=== PATIENT | female | born 1975 | race Caucasian/White ===

== ENCOUNTER → 2018-03-05 13:21 | Outpatient (CLI) | payer OTHER, SELFPAY ==
[2018-03-05 16:00] LABS: Absolute Lymphocyte Count 1.49 X10^3/ul (0.83-4.51); Absolute Neutrophil Count 8.8 X10^3/uL (2.0-7.7); Basophil# 0.02 X10^3/uL; Basophil% 0.2 % (0-1); Eosinophil# 0.07 X10^3/uL; Eosinophils% 0.7 % (0-5); Hematocrit 37.7 % (37-47); Hemoglobin 12.3 g/dl (12.0-15.0); Lymphocyte # 1.49 X10^3/ul (4.0); Lymphocyte % 13.9 % (19-41); Mean Corp Hgb Conc 32.6 g/gl (32-36); Mean Corpuscular Hgb 29.4 pg (27.0-32.0); Mean Corpuscular Volume 90.2 fL (81-99); Mean Platelet Vol. 9.4 fl (6.2-12.0); Monocyte% 2.8 % (0-10); Neutrophil # 8.84 X10^3/uL (2.7-7.7); Neutrophil % 82.3 % (47-70); Platelet Count 385 K/mm3 (150-450); RBC Distribution Width CV 14.1 % (11.6-14.6); RBC Distribution Width SD 45.5 fl (35.1-43.9); Red Blood Count 4.18 M/mm3 (4.2-5.4); White Blood Count 10.7 K/mm3 (4.4-11.0)
[2018-03-05 16:02] LABS: POSITIVE COUNT NO; POSITIVE DIFFERENTIAL NO; POSITIVE MORPHOLOGY NO
[2018-03-05 16:10] LABS: Hemoglobin A1c 6.5 % (4.2-6.3)
[2018-03-05 16:13] LABS: ALB/GLOB Ratio 0.8 RATIO (0.9-2.4); AST(SGOT) 16 U/L (15-37); Alanine Aminotransfer ALT/SGPT 22 U/L (13-56); Albumin, Serum 3.1 g/dL (3.2-5.0); Alkaline Phosphatase 94 U/L (45-117); Anion Gap 11 (5-15); BUN 6 mg/dL (7-18); BUN/Creat Ratio 7.3 RATIO (10-20); Calcium,Total 8.8 mg/dL (8.5-10.1); Chloride 105 mmol/L (98-107); Cholesterol 127 mg/dL (200); Creatinine, Serum 0.82 mg/dL (0.55-1.02); EST Glomerular Filtration Rate 81 mL/min (>60); Est Glom Filt Rate - Afr Amer 98 mL/min (>60); Globulin 4.1 g/dL (2.2-4.2); Glucose 117 mg/dL (74-106); High Density Lipoprotein 45 mg/dL; Potassium 3.6 mmol/L (3.5-5.1); Protein, Total 7.2 g/dL (6.4-8.2); Sodium Level 142 mmol/L (136-145); T4 Free Direct 1.33 ng/dL (0.76-1.46); Thyroid Stim Hormone (TSH) 0.51 uIU/mL (0.358-3.74); Triglycerides 54 mg/dL; Very Low Density Lipoprotein 11 mg/dL (5-40)
[2018-03-05 16:21] LABS: Vitamin D,25 Hydroxy 33.3 ng/mL (29.95-100.01)
== END ==
PROVIDERS: Family Provider Family Medicine; PCP Family Medicine; Visit Provider Nurse Practitioner
DX: I10 Essential (primary) hypertension (principal); E03.9 Hypothyroidism, unspecified; E10.9 Type 1 diabetes mellitus without complications
CPT/HCPCS: 80053; 80061; 82306; 83036; 84439; 84443; 85025

== ENCOUNTER → 2019-04-22 13:54 | Outpatient (CLI) | payer OTHER, SELFPAY ==
[2019-04-22 15:43] LABS: Absolute Lymphocyte Count 2.15 X10^3/uL (0.83-4.51); Absolute Neutrophil Count 5.4 X10^3/uL (2.0-7.7); Basophil# 0.04 X10^3/uL; Basophil% 0.5 % (0-1); Eosinophil# 0.07 X10^3/uL; Eosinophils% 0.9 % (0-5); Hematocrit 38.7 % (37-47); Hemoglobin 12.3 g/dL (12.0-15.0); Lymphocyte # 2.15 X10^3/ul (4.0); Lymphocyte % 26.8 % (19-41); Mean Corp Hgb Conc 31.8 g/dL (32-36); Mean Corpuscular Hgb 28.9 pg (27.0-32.0); Mean Corpuscular Volume 91.1 fL (81-99); Mean Platelet Vol. 9.3 fl (6.2-12.0); Monocyte# 0.34 X10^3/uL; Monocyte% 4.2 % (0-10); NRBC Flagged by Analyzer 0 % (0-5); Neutrophil # 5.38 X10^3/uL (2.7-7.7); Neutrophil % 67.2 % (47-70); Platelet Count 345 K/mm3 (150-450); RBC Distribution Width CV 15.4 % (11.6-14.6); RBC Distribution Width SD 50.7 fl (35.1-43.9); Red Blood Count 4.25 M/mm3 (4.2-5.4)
[2019-04-22 15:58] LABS: Hemoglobin A1c 7.2 % (4.2-6.3)
[2019-04-22 16:35] LABS: ALB/GLOB Ratio 0.7 RATIO (0.9-2.4); AST(SGOT) 13 U/L (15-37); Alanine Aminotransfer ALT/SGPT 21 U/L (13-56); Albumin, Serum 3.2 g/dL (3.2-5.0); Alkaline Phosphatase 109 U/L (45-117); Anion Gap 9 (5-15); BUN 7 mg/dL (7-18); BUN/Creat Ratio 10.2 RATIO (10-20); Calcium,Total 9.2 mg/dL (8.5-10.1); Chloride 102 mmol/L (98-107); Creatinine, Serum 0.68 mg/dL (0.55-1.02); EST Glomerular Filtration Rate 99 mL/min (>60); Est Glom Filt Rate - Afr Amer 120 mL/min (>60); Globulin 4.5 g/dL (2.2-4.2); Glucose 99 mg/dL (74-106); Potassium 3.3 mmol/L (3.5-5.1); Protein, Total 7.7 g/dL (6.4-8.2); Sodium Level 139 mmol/L (136-145); T4 Free Direct 1.42 ng/dL (0.76-1.46); Thyroid Stim Hormone (TSH) 0.26 uIU/mL (0.358-3.74)
== END ==
PROVIDERS: Family Provider Family Medicine; PCP Family Medicine; Visit Provider Family Medicine
DX: E03.9 Hypothyroidism, unspecified (principal); I10 Essential (primary) hypertension; E10.9 Type 1 diabetes mellitus without complications
CPT/HCPCS: 36415; 80053; 83036; 84439; 84443; 85025

== ENCOUNTER → 2020-01-22 14:54 | Outpatient (CLI) | payer OTHER, SELFPAY | PROVIDERS: Family Provider Family Medicine; PCP Family Medicine; Visit Provider Family Medicine | DX: R30.0 Dysuria (principal) | CPT/HCPCS: 87086 ==

== ENCOUNTER → 2020-03-25 | Outpatient (CLI) | payer OTHER, SELFPAY ==
[2020-03-15 12:23] VITALS: BMI 48.4
== END | disposition home or self-care (01) ==
LOC: LABSPEC 10:15
PROVIDERS: PCP Family Medicine; Visit Provider Family Medicine
DX: R30.0 Dysuria (principal)
CPT/HCPCS: 87086; 87088

== ENCOUNTER → 2020-05-11 13:17 | Outpatient (CLI) | payer OTHER, SELFPAY ==
[2020-05-11 10:44] VITALS: BMI 46.6
[2020-05-11 14:55] LABS: Bacteria 0 SEEN /hpf (None Seen); Mucous, Urine 0 SEEN /hpf (<or=2+)
[2020-05-11 15:17] LABS: Color, Urine Yellow (Yellow); Glucose, Dipstick Normal (Normal); Ketone-Dipstick Negative (Negative); Leukocyte Esterase-Dipstick 25 /ul (Negative); Nitrite-Dipstick Negative (Negative); Occult Blood-Urine 250 /ul (Negative); Protein-Dipstick 30 mg/dl (Negative); Specific Gravity, Urine 1.005 (1.002-1.030); Urine Bilirubin Dipstick Negative (Negative); Urine Clarity Sl. Cloudy (Clear); Urine Urobilinogen Normal (Normal); Urine pH 6.5 (5.0 - 8.0)
[2020-05-11 15:24] LABS: Red Blood Cells-Urine 25-50 SEEN /hpf (0-5); Squamous Epithelial Cells - UA 0-5 SEEN /hpf (5-10); White Blood Cells 0-5 SEEN /hpf (0-5)
== END ==
PROVIDERS: PCP Family Medicine; Referring Provider Physician Assistant Surgical; Visit Provider Physician Assistant Surgical
DX: R31.9 Hematuria, unspecified (principal)
CPT/HCPCS: 81001; 87086; 87088; 87635; U0003

== ENCOUNTER 2020-12-12 11:15 | Emergency (ER) | payer OTHER, SELFPAY ==
[2020-11-07 09:22] VITALS: BMI 46.6
[2020-12-12 11:16] VITALS: BP 161/101; PULSE 92; RESP 18; TEMP 36; O2SAT 97; BMI 49.6
--- NOTE | 2020-12-12 11:32 | RAD_ITS ---
STUDY: X-RAY - CERVICAL SPINE REASON FOR EXAM: Female, 45 years old. injury TECHNIQUE: view(s) of the cervical spine were obtained. COMPARISON: None FINDINGS: There is straightening of the cervical lordosis otherwise the vertebral bodies are normal height. Intervertebral disc spaces are maintained the prevertebral soft tissue is unremarkable. The air column is patent. RAD/Cerv Spine 2 or 3 Views IMPRESSION: Straightening of the cervical spine the study is otherwise negative Electronically Signed: Lilly Hunt, at 12:45 EDT Tel , Service support ,
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
[2020-12-12 12:59] VITALS: RESP 16
== END 2020-12-12 13:00 | disposition home or self-care (01) ==
PROVIDERS: Emergency Provider Emergency Medicine; PCP Family Medicine
DX: S16.1XXA Strain of muscle, fascia and tendon at neck level, initial encounter (principal); V89.2XXA Person injured in unspecified motor-vehicle accident, traffic, initial encounter; Y92.410 Unspecified street and highway as the place of occurrence of the external cause; I10 Essential (primary) hypertension; E03.9 Hypothyroidism, unspecified; K21.9 Gastro-esophageal reflux disease without esophagitis; G62.9 Polyneuropathy, unspecified; Z87.891 Personal history of nicotine dependence; F32.9 Major depressive disorder, single episode, unspecified; F41.9 Anxiety disorder, unspecified; J44.9 Chronic obstructive pulmonary disease, unspecified; Z79.4 Long term (current) use of insulin
CPT/HCPCS: 72040; 99282

== ENCOUNTER → 2021-03-20 15:43 | Outpatient (CLI) | payer OTHER, SELFPAY ==
[2021-03-20 17:37] LABS: Absolute Lymphocyte Count 1.95 X10^3/uL (0.83-4.51); Absolute Neutrophil Count 7.8 X10^3/uL (2.0-7.7); Basophil# 0.03 X10^3/uL; Basophil% 0.3 % (0-1); Eosinophil# 0.14 X10^3/uL; Eosinophils% 1.4 % (0-5); Hematocrit 39.4 % (37-47); Hemoglobin 12.8 g/dL (12.0-15.0); Lymphocyte # 1.95 X10^3/ul (0.83-4.51); Lymphocyte % 18.8 % (19-41); Mean Corp Hgb Conc 32.5 g/dL (32-36); Mean Corpuscular Hgb 29.1 pg (27.0-32.0); Mean Corpuscular Volume 89.5 fL (81-99); Mean Platelet Vol. 8.9 fl (6.2-12.0); Monocyte# 0.45 X10^3/uL; Monocyte% 4.3 % (0-10); NRBC Flagged by Analyzer 0 % (0-5); Neutrophil # 7.76 X10^3/uL (2.7-7.7); Neutrophil % 74.8 % (47-70); Platelet Count 427 K/mm3 (150-450); RBC Distribution Width CV 14.7 % (11.6-14.6); RBC Distribution Width SD 48.5 fl (35.1-43.9); White Blood Count 10.4 K/mm3 (4.4-11.0)
[2021-03-20 18:49] LABS: ALB/GLOB Ratio 0.7 RATIO (0.9-2.4); AST(SGOT) 12 U/L (15-37); Alanine Aminotransfer ALT/SGPT 17 U/L (13-56); Albumin, Serum 3.1 g/dL (3.2-5.0); Alkaline Phosphatase 132 U/L (45-117); Anion Gap 10 (5-15); BUN 9 mg/dL (7-18); BUN/Creat Ratio 10.7 RATIO (10-20); Calcium,Total 9.1 mg/dL (8.5-10.1); Chloride 101 mmol/L (98-107); Creatinine, Serum 0.84 mg/dL (0.55-1.02); EST Glomerular Filtration Rate 78 mL/min (>60); Est Glom Filt Rate - Afr Amer 94 mL/min (>60); Globulin 4.6 g/dL (2.2-4.2); Glucose 73 mg/dL (74-106); Potassium 3.6 mmol/L (3.5-5.1); Protein, Total 7.7 g/dL (6.4-8.2); Sodium Level 138 mmol/L (136-145); T4 Free Direct 0.45 ng/dL (0.76-1.46)
== END ==
PROVIDERS: PCP Family Medicine; Referring Provider Family Medicine; Visit Provider Family Medicine
DX: E10.9 Type 1 diabetes mellitus without complications (principal); I10 Essential (primary) hypertension; E03.9 Hypothyroidism, unspecified
CPT/HCPCS: 36415; 80053; 84439; 84443; 85025

== ENCOUNTER → 2021-04-06 17:25 | Outpatient (CLI) | payer OTHER, SELFPAY ==
[2021-04-11 16:54] LABS: HPV APTIMA, High Risk Negative (Negative)
== END ==
PROVIDERS: PCP Family Medicine; Referring Provider Obstetrics & Gynecology; Visit Provider Obstetrics & Gynecology
DX: Z12.4 Encounter for screening for malignant neoplasm of cervix (principal)
CPT/HCPCS: 87624; 88175; G0145

== ENCOUNTER → 2021-06-08 16:09 | Outpatient (CLI) | payer OTHER, SELFPAY ==
--- NOTE | 2021-06-08 16:11 | BI_ITS ---
MAMMOGRAPHY - BILATERAL SCREENING REASON FOR EXAM: Female, 45 years old. Routine annual screening examination. PERTINENT HISTORY: Grandmother with breast cancer. TECHNIQUE: Digital bilateral breast russel (3D mammographic acquisition) in the CC and MLO projections. 2-D mediolateral oblique (MLO) and craniocaudad (CC) views of both breasts were obtained. CAD: Full Field Digital Mammography with Computer Added Detection was performed. COMPARISON: None. Baseline examination. FINDINGS: Breast Composition: There are scattered areas of fibroglandular density. There are no dominant masses or suspicious calcifications. No other significant abnormalities are identified. BI/SCRN MAMM (CAD)W/RUSSEL BILAT IMPRESSION: Negative screening mammogram. Yearly followup mammogram recommended. (A) ASSESSMENT CATEGORY: BIRADS Category 1: Negative. A letter regarding these results will be sent to the patient by the facility within 30 days. Approximately 10% of breast cancers are not detected by mammography. A normal mammogram should not delay biopsy of a clinically suspicious abnormality. [id number] Electronically Signed: Guerrero Taylor MD at 8:30 EST , Service support ,
== END ==
PROVIDERS: PCP Family Medicine; Visit Provider Obstetrics & Gynecology
DX: Z12.31 Encounter for screening mammogram for malignant neoplasm of breast (principal)
CPT/HCPCS: 77063; 77067

== ENCOUNTER 2021-10-04 15:06 | Outpatient (CLI) | payer OTHER, SELFPAY ==
[2021-10-04 15:55] LABS: Erythrocyte Sedimentation Rate 33 mm/hr (0-30)
[2021-10-04 15:59] LABS: Absolute Lymphocyte Count 1.82 X10^3/uL (0.83-4.51); Absolute Neutrophil Count 5.7 X10^3/uL (2.0-7.7); Basophil# 0.04 X10^3/uL; Basophil% 0.5 % (0-1); Eosinophil# 0.11 X10^3/uL; Eosinophils% 1.4 % (0-5); Hematocrit 37.9 % (37-47); Hemoglobin 12.3 g/dL (12.0-15.0); Lymphocyte # 1.82 X10^3/ul (0.83-4.51); Lymphocyte % 22.7 % (19-41); Mean Corp Hgb Conc 32.5 g/dL (32-36); Mean Corpuscular Volume 89.4 fL (81-99); Monocyte# 0.34 X10^3/uL; Monocyte% 4.2 % (0-10); NRBC Flagged by Analyzer 0 % (0-5); Neutrophil # 5.68 X10^3/uL (2.7-7.7); Neutrophil % 70.8 % (47-70); Platelet Count 387 K/mm3 (150-450); RBC Distribution Width CV 14.1 % (11.6-14.6); RBC Distribution Width SD 45.9 fl (35.1-43.9); Red Blood Count 4.24 M/mm3 (4.2-5.4)
[2021-10-04 16:19] LABS: International Normalized Ratio 1.1; Prothrombin Time (Protime)PT. 13.6 SECONDS (11.7-14.9)
[2021-10-04 16:20] LABS: ALB/GLOB Ratio 0.7 RATIO (0.9-2.4); AST(SGOT) 12 U/L (15-37); Alanine Aminotransfer ALT/SGPT 19 U/L (13-56); Albumin, Serum 3.2 g/dL (3.2-5.0); Alkaline Phosphatase 140 U/L (45-117); Anion Gap 3 (5-15); BUN 10 mg/dL (7-18); BUN/Creat Ratio 11.2 RATIO (10-20); Calcium,Total 9.4 mg/dL (8.5-10.1); Chloride 104 mmol/L (98-107); Creatinine, Serum 0.89 mg/dL (0.55-1.02); EST Glomerular Filtration Rate 73 mL/min (>60); Est Glom Filt Rate - Afr Amer 88 mL/min (>60); Ferritin 32 ng/mL (8-252); Globulin 4.3 g/dL (2.2-4.2); Glucose 114 mg/dL (74-106); LDH 197 U/L (84-246); Potassium 3.9 mmol/L (3.5-5.1); Protein, Total 7.5 g/dL (6.4-8.2); Sodium Level 139 mmol/L (136-145)
[2021-10-04 16:30] LABS: Hemoglobin A1c 7.4 % (3.8-5.6)
[2021-10-04 16:45] LABS: HIV - WCH Non-Reactive (Nonreactive)
[2021-10-06 15:08] LABS: Anti-Centromere B Ab <0.2 AI (0.0-0.9); Anti-Chromatin 0.3 AI (0.0-0.9); Anti-Jo <0.2 AI (0.0-0.9); Anti-Scleroderma-70 AB <0.2 AI (0.0-0.9); RNP Ab <0.2 AI (0.0-0.9); SJOGREN'S Anti-SS-A test < 0.2 AI (0.0-0.9); SJOGREN'S Anti-SS-B test < 0.2 AI (0.0-0.9); Smith Ab <0.2 AI (0.0-0.9)
[2021-10-06 21:08] LABS: Anti-Mitochondrial AB <20.0 Units (0.0-20.0); Anti-dsDNA Ab <1 IU/mL (0-9)
[2021-10-07 17:07] LABS: Angiotensin Convert Enzyme 75 U/L (14-82); Ceruloplasmin 32.2 mg/dL (19.0-39.0); Cytoplasmic Ab (C-ANCA) <1:20 titer (Neg:<1:20); HEPATITIS B SURFACE AG Negative (Negative); Hepatitis A IgM Antibody Negative (Negative); Hepatitis B Core AB IgM Negative (Negative)
[2021-10-08 17:03] LABS: AFP, Tumor Marker 1.8 ng/mL (0.0-6.4); Anti-Smooth Muscle ABS 20 Units (0-19); Copper, Serum or Plasma 148 ug/dL (80-158); Haptoglobin 252 mg/dL (42-296); Hep C Antibodies <0.1 s/co ratio (0.0-0.9); Perinuclear Ab (P-ANCA) <1:20 titer (Neg:<1:20)
== END 2021-10-04 23:59 | disposition home or self-care (01) ==
LOC: LAB 15:07
PROVIDERS: PCP Family Medicine; Referring Provider Internal Medicine Gastroenterology; Visit Provider Internal Medicine Gastroenterology
DX: E66.01 Morbid (severe) obesity due to excess calories (principal); Z68.42 Body mass index [BMI] 45.0-49.9, adult; K21.9 Gastro-esophageal reflux disease without esophagitis; R74.8 Abnormal levels of other serum enzymes
CPT/HCPCS: 36415; 80053; 80074; 82105; 82140; 82164; 82390; 82525; 82728; 83010; 83036; 83516; 83615; 85025; 85610; 85652; 86140; 86225; 86235; 86256; 86703

== ENCOUNTER → 2021-11-01 | Outpatient (CLI) | payer OTHER, SELFPAY ==
--- NOTE | 2021-11-01 07:06 | US_ITS ---
STUDY: ABDOMINAL ULTRASOUND - RIGHT UPPER QUADRANT REASON FOR VISIT: Female, 45 years old findings evaluation of the liver. Morbid obesity. TECHNIQUE: Ultrasound evaluation of the right upper quadrant was performed with real-time and static peters-scale imaging. TECHNICAL QUALITY: Adequate. COMPARISON: None. FINDINGS: Liver: The liver is enlarged and measures 18.7 cm. There is increased echogenicity consistent with fatty infiltration. The bile ducts are within normal limits. There is hepatic color flow. The direction of portal flow is hepatopetal. There is no demonstrated mass lesion. Gallbladder: There is a contracted gallbladder. The gallbladder wall measures 7 mm. There is a negative sonographic Mendez''s sign. There is no pericholecystic fluid. There are no gallstones. Common Bile Duct (C.B.D.): The common bile duct measures 4 mm. Pancreas: There is nonvisualization of the pancreas due to overlying bowel gas. Right Kidney: Normal size of the right kidney. The right kidney measures 11.9 cm x 4.5 cm x 5.3 cm. Normal renal cortex. The right cortex measures 2 cm. There is no demonstrated renal mass or cyst. There is no right hydronephrosis. US/Abdomen Limited IMPRESSION: Hepatomegaly and diffuse fatty infiltration of the liver. Contracted gallbladder. Electronically Signed: Guerrero Taylor MD at 11:14 EDT ,
--- NOTE | 2021-11-01 07:06 | US_ITS ---
STUDY: ABDOMINAL ULTRASOUND - ELASTOGRAPHY REASON FOR VISIT: Female, 45 years old. Obesity. TECHNIQUE: Liver stiffness measurements were obtained on a [employer] RS 85 ultrasound machine using a CA 1-7 probe following the SRU guidelines. 3 measurements were obtained using a 2-D-SWE method. The IQR/M was 22% suggesting a quality data set. TECHNICAL QUALITY: Adequate. COMPARISON: Comparison is made with prior study done earlier in the day. FINDINGS: Liver: There is no demonstrated mass lesion. Median liver stiffness measured 8.7 kPa. US/Elastography Parenchyma/Organ IMPRESSION: Liver stiffness measures 8.7 kPa compatible with F2-F3 (Mild to moderate liver fibrosis) Metavir score. Electronically Signed: Guerrero Taylor MD at 11:13 EDT ,
[2021-11-01 12:48] LABS: T4 Free Direct 1.38 ng/dL (0.76-1.46)
== END | disposition home or self-care (01) ==
PROVIDERS: Internal Medicine Endocrinology, Diabetes & Metabolism; PCP Family Medicine; Referring Provider Internal Medicine Gastroenterology; Visit Provider Internal Medicine Gastroenterology
DX: E66.01 Morbid (severe) obesity due to excess calories (principal); Z68.42 Body mass index [BMI] 45.0-49.9, adult; K21.9 Gastro-esophageal reflux disease without esophagitis; R74.8 Abnormal levels of other serum enzymes; E03.8 Other specified hypothyroidism; E06.3 Autoimmune thyroiditis
CPT/HCPCS: 36415; 76705; 76981; 84439; 84443

== ENCOUNTER → 2022-04-04 | Outpatient (CLI) | payer OTHER, SELFPAY | END | disposition home or self-care (01) | LOC: BFHLAB 16:21 | PROVIDERS: PCP Family Medicine; Visit Provider Family Medicine | DX: R30.0 Dysuria (principal) | CPT/HCPCS: 87086; 87088 ==

== ENCOUNTER 2022-09-04 12:11 | Day surgery (SDC) | payer OTHER, SELFPAY ==
[2022-09-04] VITALS (7 sets, daily range): BP systolic 106–140; BP diastolic 64–68; PULSE 75–81; RESP 16; TEMP 36.1–36.4; O2SAT 95–100; BMI 42.3
[2022-09-04 12:56] LABS: Internal QC Validated? YES +Cl - CLEAR BKGD; Pregnancy, Urine Negative Negative
[2022-09-04] MEDS: Lactated Ringers 1,000 ML 15 ML IV (13:03)
[2022-09-04 13:05] LABS: Bedside Glucose 125 mg/dL (74-106)
--- NOTE | 2022-09-04 13:29 | PCM.HP.BLA ---
History and Physical Date of Admission: 09/04/22 ?45 F who presents to the office today for Initial consultation. Lizz established with this clinic 10.04.21 for evaluation of GERD since 2019. PCP started on omeprazole which was helpful at onset. She has been having increased episodes of reflux. Increased abdominal pressure causes severe reflux. She has been attempting to improve her diet and increase her exercise. Medical history includes DMII (metformin, Tresiba, Humalog; follows Dr. Quinton Corona), Hypothyroid (Dr. Quinton Corona), Obesity, HTN, depression, Asthma, PCOS, heart murmur. Recent bloodwork showed ast 12l, alk phosphatase 132H, T4 0.45L, TSH 47.90H, albumin 3.1L Weights 10.04.21 357lbs ROS Const Constitutional: No anorexia, fatigue, fever(s), weight change or sleep problems Eyes Eyes: No change in vision ENT ENT: No abnormal hearing, difficulty swallowing, mouth lesions, tongue swelling or throat swelling Resp Respiratory: No cough or shortness of breath Cardio Cardiology: No chest pain at rest, chest pain with exertion, shortness of breath or dyspnea on exertion Gastro GI: No difficulty swallowing Genitourinary-Female: No difficulty urinating or burning urination Musc Musculoskeletal: No joint pain, joint swelling, muscle weakness or decreased muscle mass Skin Skin: No hair loss in leg, yellowing of the eye, itchy eyes, rash, skin ulcer or skin swelling Neuro Neurology: No abnormal hearing, abnormal movements, confusion, unsteady gait/balance or memory loss Psych Psychiatric: No anxiety, No confusion and No memory loss Endo Endocrine: No fatigue or weight change Aller/Imm Allergy/Immunologic: No itchy eyes, throat swelling or tongue swelling Tate/Lymp Hematologic/Lymphatic: No easy bleeding, easy bruising or enlarged lymph nodes Exam Const General: cooperative and comfortable Nutritional Appearance: average body habitus and well nourished [facility] Head: normal to inspection Ears: hearing grossly normal bilaterally Nose: external nose normal Face and sinus: normal facial exam Mouth: oral mucosae normal Throat: posterior oropharynx normal Eyes General: appearance normal, both eyes and all related structures Neck Neck: normal visual inspection Chest Chest palpation & inspection: normal inspection of the chest and normal palpation of entire chest wall Resp Effort & Inspection: normal respiratory effort Auscultation: Bilateral: Clear to Auscultation Cardio Palpation: normal PMI Rate: regular rate Rhythm: regular rhythm GI Inspection: normal to inspection Auscultation: normal bowel sounds Percussion: normal to percussion Palpation: no hepatosplenomegaly Skin General: no rashes or lesions noted Neuro General: patient alert Extrem General: normal to inspection Psych Affect: normal affect Quality Reporting Tobacco Screening ([facility]) Smoking Status: Former smoker Assessment and Plan Assessment and Plan (1) GERD (gastroesophageal reflux disease): ?Status:?Acute ? ? ? Orders:?Orders: ? HIV - [facility] Today ? ? ? Comprehensive Metabolic Profil Today ? ? ? CRP Today ? ? ? Ferritin Today ? ? ? LDH Today ? ? ? Hemoglobin A1c Today ? ? ? Prothrombin Time w/INR Today ? ? ? CBC W/Diff, Automated Today ? ? ? Erythrocyte Sed Rate Today ? ? ? Anti-Mitochondrial AB Today ? ? ? JUWAN Comprehensive Panel Today ? ? ? Hepatitis Panel Acute Today ? ? ? Angiotensin Convert Enzyme Today ? ? ? AFP, Tumor Marker Today ? ? ? ANCA Today ? ? ? Anti-Smooth Muscle ABS Today ? ? ? Ceruloplasmin Today ? ? ? Copper, Serum or Plasma Today ? ? ? Haptoglobin Today ? ? ? Ammonia Today ? ? ? Abdomen Limited Today ? ? ? Elastography Parenchyma/Organ Today ?Plan - Dr. Reese Friend, DO: We will get an upper endoscopy to evaluate her upper GI tract.? She is to Pepcid at this time is not having attending symptoms if she follows a strict diet.? We will evaluate her for hiatal hernia, eosinophilic esophagitis, erosive esophagitis and any peptic ulcer disease that may be seen on upper endoscopy.? She was explained alternatives, risks, benefits, metastatically, infection, sepsis, perforation, need for addition to .? She will have an ASA of 2. (2) Obesity: ?Status:?Acute ?Qualifiers: ?Obesity type:?due to excess calories??Obesity classification:?adult class 3 (BMI >= 40)??Serious obesity comorbidity presence:?with serious comorbidity??Body mass index:?BMI 45.0-49.9? Qualified Code(s):?E66.01 - Morbid (severe) obesity due to excess calories; Z68.42 - Body mass index [BMI] 45.0-49.9, adult ? ? ? Orders:?Orders: ? HIV - [facility] Today ? ? ? Comprehensive Metabolic Profil Today ? ? ? CRP Today ? ? ? Ferritin Today ? ? ? LDH Today ? ? ? Hemoglobin A1c Today ? ? ? Prothrombin Time w/INR Today ? ? ? CBC W/Diff, Automated Today ? ? ? Erythrocyte Sed Rate Today ? ? ? Anti-Mitochondrial AB Today ? ? ? JUWAN Comprehensive Panel Today ? ? ? Hepatitis Panel Acute Today ? ? ? Angiotensin Convert Enzyme Today ? ? ? AFP, Tumor Marker Today ? ? ? ANCA Today ? ? ? Anti-Smooth Muscle ABS Today ? ? ? Ceruloplasmin Today ? ? ? Copper, Serum or Plasma Today ? ? ? Haptoglobin Today ? ? ? Ammonia Today ? ? ? Abdomen Limited Today ? ? ? Elastography Parenchyma/Organ Today ?Plan - Dr. Reese Friend, DO: She will also need a elastography to evaluate her liver and to see if she has any other underlying chronic liver disease to biochemical analysis due to her elevation in alkaline phosphatase and mildly elevated AST.? She does not drink any alcohol and has no previous history of liver issues. I have examined the patient and the H&P has been reviewed. There are no clinical changes since date of exam.
--- NOTE | 2022-09-04 13:30 | COLBX_PTH ---
PATIENT: DB ARITA LOC: [facility] U#:[id number] AGE/SX: 46/F ROOM: RE09/04/[address]: Dr. Hugh Oakes DO : 1975 BED: DIS: 09/04/2022 SPEC #: [id number] RECD: 09/05/22 06:41 STATUS: DAVE JOLENE #: [id number] BRITTANY: 09/04/22 13:[address]: Hugh Oakes DEPT: SURGICAL PATHOLOGY RECD BY: Kg Cortes ENTERED: 09/05/22 08:07 SP TYPE: COLON BX OTHR DR: Dr. Jose Alfredo De La Torre DO Tissues: A - Duodenum, NOS B - Esophagus, NOS C - Sigmoid colon biopsy D - Rectum, NOS Procedures: Special Stain Group II Surgery Specimen Level IV Alcian Blue/PAS (control) HEADER OPERATION: Colonoscopy with polypectomies and biopsy, [place] [place] PRE-OP DIAGNOSIS: GERD TISSUE SUBMITTED: A ? Duodenum biopsy, B ? Distal esophagus biopsy, C ? Sigmoid polyps, D ? Rectal biopsy MICROSCOPIC DIAGNOSIS A. Duodenum, biopsy: Fragments of duodenal mucosa, no pathologic diagnosis. B. Distal esophagus, biopsy: Fragments of gastroesophageal mucosa with chronic inflammation. Intestinal metaplasia (goblet cell metaplasia) not identified. See comment. C. Sigmoid polyps, polypectomy: Fragments of tubular adenoma. D. Rectal biopsy: Fragments of colonic mucosa, no pathologic diagnosis. SJ:reed 09/06/2022 COMMENT B. Alcian blue/PAS stain with matched control is used in the evaluation of the specimen. The specimen predominantly consists of gastric mucosa. MICROSCOPIC DESCRIPTION Slides are reviewed. GROSS DESCRIPTION A - Received in fixative is one container labeled with the patient's name and designated duodenum biopsy. The specimen consists of multiple irregular fragments of light newby soft tissue that in aggregate measure 1.0 x 0.3 x 0.1 cm. The specimen is totally submitted in one cassette. B - Received in fixative is one container labeled with the patient's name and designated distal esophagus biopsy. The specimen consists of two irregular fragments of light newby soft tissue that in aggregate measure 0.7 x 0.5 x 0.1 cm. The specimen is totally submitted in one cassette. C - Received in fixative is one container labeled with the patient's name and designated sigmoid polyps. The specimen consists of multiple irregular fragments of light newby soft tissue that in aggregate measure 1.0 x 0.3 x 0.1 cm. The specimen is totally submitted in one cassette. D - Received in fixative is one container labeled with the patient's name and designated rectal biopsy. The specimen consists of multiple irregular fragments of light newby soft tissue that in aggregate measure 0.6 x 0.5 x 0.1 cm. The specimen is totally submitted in one cassette. / SJ:rg 09/05/2022 TC:3 CPT: 77953 x4, 32920
[2022-09-04 14:46] LABS: Bedside Glucose 82 mg/dL (74-106)
--- NOTE | 2022-09-04 15:02 | OP.EGD_ITS ---
Patient Name: Lizz Buckley Procedure Date: 09/04/2022 2:14 PM Date of : 1975 Age: 46 Procedure: Upper GI endoscopy Indications: Dyspepsia, Indigestion, Heartburn Providers: Hugh Oakes DO Medicines: Monitored Anesthesia Care Patient Profile: This is a 46 year old female. Refer to note in patient chart for documentation of history and physical. Patient has symptoms of chronic heartburn, chronic odynophagia and chronic regurgitation. Complications: No immediate complications. Procedure: Pre-Anesthesia Assessment: - Prior to the procedure, a History and Physical was performed, and patient medications and allergies were reviewed. The patient is competent. The risks and benefits of the procedure and the sedation options and risks were discussed with the patient. All questions were answered and informed consent was obtained. Patient identification and proposed procedure were verified by the physician in the pre-procedure area. Mental Status Examination: alert and oriented. Airway Examination: normal oropharyngeal airway and neck mobility. Respiratory Examination: clear to auscultation. CV Examination: normal. Prophylactic Antibiotics: The patient does not require prophylactic antibiotics. Prior Anticoagulants: The patient has taken no previous anticoagulant or antiplatelet agents. ASA Grade Assessment: II - A patient with mild systemic disease. After reviewing the risks and benefits, the patient was deemed in satisfactory condition to undergo the procedure. The anesthesia plan was to use monitored anesthesia care (MAC). Immediately prior to administration of medications, the patient was re-assessed for adequacy to receive sedatives. The heart rate, respiratory rate, oxygen saturations, blood pressure, adequacy of pulmonary ventilation, and response to care were monitored throughout the procedure. The physical status of the patient was re-assessed after the procedure. After obtaining informed consent, the endoscope was passed under direct vision. Throughout the procedure, the patient's blood pressure, pulse, and oxygen saturations were monitored continuously. The colonoscope was introduced through the mouth, and advanced to the second part of duodenum. The upper GI endoscopy was accomplished without difficulty. The patient tolerated the procedure well. Scope In: 2:30:38 PM Scope Out: 2:34:29 PM Total Procedure Duration Time 0 hours 3 minutes 51 seconds Findings: No gross lesions were noted in the entire esophagus. Biopsies were taken with a cold forceps for histology. Verification of patient identification for the specimen was done. Estimated blood loss was minimal. A small hiatal hernia was present. The entire examined stomach was normal. The cardia and gastric fundus were normal on retroflexion. The second portion of the duodenum was normal. Biopsies were taken with a cold forceps for histology. Verification of patient identification for the specimen was done. Estimated blood loss was minimal. Impression: - No gross lesions in esophagus. Biopsied. - Small hiatal hernia. - Normal stomach. - Normal second portion of the duodenum. Biopsied. Recommendation: - Discharge patient to home. - Resume previous diet. - Continue present medications. - Await pathology results. Procedure Code(s): --- Professional --- 51222, Esophagogastroduodenoscopy, flexible, transoral; with biopsy, single or multiple CPT copyright 2017 [employer]. All rights reserved. The codes documented in this report are preliminary and upon assistant quality manager review may be revised to meet current compliance requirements. Hugh Oakes DO 09/04/2022 3:02:00 PM This report has been signed electronically. Number of Addenda: 0 Note Initiated On: 09/04/2022 2:14 PM
--- NOTE | 2022-09-04 15:03 | OP.CCLET_ITS ---
09/04/2022 Madelyn Cassidy [address] [facility] [place] [address] Re : Upper GI endoscopy procedure for Lizz Buckley Dear Dr. Cassidy This procedure was performed on Sunday, September 04, 2022. My impressions and recommendations are as follows: Impressions : - No gross lesions in esophagus. Biopsied. - Small hiatal hernia. - Normal stomach. - Normal second portion of the duodenum. Biopsied. Recommendations : - Discharge patient to home. - Resume previous diet. - Continue present medications. - Await pathology results. My findings are described in the full procedure note, which is enclosed. If I can be of further assistance, please feel free to contact me at . Sincerely, Hugh Oakes, 09/04/2022 3:02:00 PM This report has been signed electronically.
--- NOTE | 2022-09-04 15:09 | OP.COLON_ITS ---
Patient Name: Lizz Buckley Procedure Date: 09/04/2022 2:34 PM Date of : 1975 Age: 46 Procedure: Colonoscopy Indications: Screening for colorectal malignant neoplasm Providers: Hugh Oakes DO Medicines: Monitored Anesthesia Care Patient Profile: This is a 46 year old female. Refer to note in patient chart for documentation of history and physical. Patient has symptoms of chronic heartburn, chronic odynophagia and chronic regurgitation. Last Colonoscopy: none. The patient's first colonoscopy is today. Complications: No immediate complications. Procedure: Pre-Anesthesia Assessment: - Prior to the procedure, a History and Physical was performed, and patient medications and allergies were reviewed. The patient is competent. The risks and benefits of the procedure and the sedation options and risks were discussed with the patient. All questions were answered and informed consent was obtained. Patient identification and proposed procedure were verified by the physician in the pre-procedure area. Mental Status Examination: alert and oriented. Airway Examination: normal oropharyngeal airway and neck mobility. Respiratory Examination: clear to auscultation. CV Examination: normal. Prophylactic Antibiotics: The patient does not require prophylactic antibiotics. Prior Anticoagulants: The patient has taken no previous anticoagulant or antiplatelet agents. ASA Grade Assessment: II - A patient with mild systemic disease. After reviewing the risks and benefits, the patient was deemed in satisfactory condition to undergo the procedure. The anesthesia plan was to use monitored anesthesia care (MAC). Immediately prior to administration of medications, the patient was re-assessed for adequacy to receive sedatives. The heart rate, respiratory rate, oxygen saturations, blood pressure, adequacy of pulmonary ventilation, and response to care were monitored throughout the procedure. The physical status of the patient was re-assessed after the procedure. After I obtained informed consent, the scope was passed under direct vision. Throughout the procedure, the patient's blood pressure, pulse, and oxygen saturations were monitored continuously. The colonoscope was introduced through the anus and advanced to the cecum, identified by appendiceal orifice and ileocecal valve. The colonoscopy was performed without difficulty. The patient tolerated the procedure well. The quality of the bowel preparation was poor. Scope In: 2:37:29 PM Scope Withdrawal Time 0 hours 10 minutes 58 seconds Scope Out: 2:54:48 PM Total Procedure Duration Time 0 hours 17 minutes 19 seconds Findings: The perianal and digital rectal examinations were normal. An area of mildly congested mucosa was found in the rectum and in the recto-sigmoid colon. Biopsies were taken with a cold forceps for histology. Verification of patient identification for the specimen was done. Estimated blood loss was minimal. Two sessile polyps were found in the sigmoid colon. The polyps were 1 to 2 mm in size. These polyps were removed with a hot snare. Resection and retrieval were complete. Verification of patient identification for the specimen was done. A large amount of stool was found in the entire colon, precluding visualization. Impression: - Preparation of the colon was poor. - Congested mucosa in the rectum and in the recto-sigmoid colon. Biopsied. - Two 1 to 2 mm polyps in the sigmoid colon, removed with a hot snare. Resected and retrieved. - Stool in the entire examined colon. Recommendation: - Await pathology results. - Repeat colonoscopy in 6 months because the bowel preparation was poor. - Continue present medications. Procedure Code(s): --- Professional --- 35455, Colonoscopy, flexible; with removal of tumor(s), polyp(s), or other lesion(s) by snare technique 02055, 59, Colonoscopy, flexible; with biopsy, single or multiple CPT copyright 2017 [employer]. All rights reserved. The codes documented in this report are preliminary and upon comfort advisor review may be revised to meet current compliance requirements. Hugh Oakes DO 09/04/2022 3:09:06 PM This report has been signed electronically. Number of Addenda: 0 Note Initiated On: 09/04/2022 2:34 PM
--- NOTE | 2022-09-04 15:10 | OP.CCLET_ITS ---
09/04/2022 Madelyn Cassidy [address] [place] [address] Re : Colonoscopy procedure for Lizz Buckley Dear Dr. Cassidy This procedure was performed on Sunday, September 04, 2022. My impressions and recommendations are as follows: Impressions : - Preparation of the colon was poor. - Congested mucosa in the rectum and in the recto-sigmoid colon. Biopsied. - Two 1 to 2 mm polyps in the sigmoid colon, removed with a hot snare. Resected and retrieved. - Stool in the entire examined colon. Recommendations : - Await pathology results. - Repeat colonoscopy in 6 months because the bowel preparation was poor. - Continue present medications. My findings are described in the full procedure note, which is enclosed. If I can be of further assistance, please feel free to contact me at . Sincerely, Hugh Oakes, 09/04/2022 3:09:06 PM This report has been signed electronically.
== END 2022-09-04 16:16 | disposition home or self-care (01) ==
LOC: EN 12:14 → AC 12:16
PROVIDERS: Anesthesiology; PCP Family Medicine; Referring Provider Family Medicine; Visit Provider Internal Medicine Gastroenterology
PROC: 0DJD8ZZ Inspection of Lower Intestinal Tract, Via Natural or Artificial Opening Endoscopic (ICD-10-PCS; CPT 45378; principal; 2022-09-04 13:25)
DX: Z12.11 Encounter for screening for malignant neoplasm of colon (principal); E66.01 Morbid (severe) obesity due to excess calories; Z68.41 Body mass index [BMI] 40.0-44.9, adult; E11.9 Type 2 diabetes mellitus without complications; K63.5 Polyp of colon; Z79.84 Long term (current) use of oral hypoglycemic drugs; K44.9 Diaphragmatic hernia without obstruction or gangrene; E03.9 Hypothyroidism, unspecified; I10 Essential (primary) hypertension; R01.1 Cardiac murmur, unspecified; J45.909 Unspecified asthma, uncomplicated; Z87.891 Personal history of nicotine dependence; K21.9 Gastro-esophageal reflux disease without esophagitis
CPT/HCPCS: 45385; 45380; 43239; 81025; 82962; 88305; 88313; J7120; J2405

== ENCOUNTER 2022-09-20 13:00 | Outpatient (RCR) | payer OTHER, SELFPAY | END 2022-09-21 23:59 | LOC: DC 13:00 | PROVIDERS: PCP Family Medicine; Visit Provider Family Medicine | DX: E10.9 Type 1 diabetes mellitus without complications (principal) | CPT/HCPCS: G0108 ==

== ENCOUNTER → 2022-10-15 | Outpatient (CLI) | payer OTHER, SELFPAY ==
[2022-10-15 15:01] LABS: Hemoglobin A1c 5.9 % (3.8-5.6)
[2022-10-15 15:04] LABS: ALB/GLOB Ratio 0.9 RATIO (0.9-2.4); AST(SGOT) 20 U/L (15-37); Alanine Aminotransfer ALT/SGPT 26 U/L (13-56); Albumin, Serum 3.5 g/dL (3.2-5.0); Alkaline Phosphatase 112 U/L (45-117); Anion Gap 3 (5-15); BUN 12 mg/dL (7-18); BUN/Creat Ratio 13.3 RATIO (10-20); Calcium,Total 9.1 mg/dL (8.5-10.1); Chloride 105 mmol/L (98-107); Cholesterol 152 mg/dL (200); EST Glomerular Filtration Rate 71 mL/min (>60); Est Glom Filt Rate - Afr Amer 86 mL/min (>60); Globulin 3.7 g/dL (2.2-4.2); Glucose 53 mg/dL (74-106); High Density Lipoprotein 71 mg/dL; Potassium 3.3 mmol/L (3.5-5.1); Protein, Total 7.2 g/dL (6.4-8.2); Sodium Level 138 mmol/L (136-145); T4 Free Direct 1.15 ng/dL (0.76-1.46); Thyroid Stim Hormone (TSH) 3.52 uIU/mL (0.358-3.74); Triglycerides 76 mg/dL; Very Low Density Lipoprotein 15 mg/dL (5-40)
[2022-10-17 12:09] LABS: C-Peptide < 0.1 ng/mL (1.1-4.4)
== END | disposition home or self-care (01) ==
LOC: LAB 13:35
PROVIDERS: PCP Family Medicine; Referring Provider Internal Medicine Endocrinology, Diabetes & Metabolism; Visit Provider Internal Medicine Endocrinology, Diabetes & Metabolism
DX: E10.9 Type 1 diabetes mellitus without complications (principal); E03.8 Other specified hypothyroidism; E06.3 Autoimmune thyroiditis
CPT/HCPCS: 36415; 80053; 80061; 83036; 84439; 84443; 84681

== ENCOUNTER 2022-11-13 13:00 | Outpatient (RCR) | payer OTHER, SELFPAY | END 2022-11-21 23:59 | LOC: DC 13:00 | PROVIDERS: PCP Family Medicine; Referring Provider Family Medicine; Visit Provider Family Medicine | DX: E10.9 Type 1 diabetes mellitus without complications (principal) | CPT/HCPCS: 97802; G0108 ==

== ENCOUNTER → 2022-11-23 | Outpatient (CLI) | payer OTHER, SELFPAY ==
--- NOTE | 2022-11-23 08:50 | BI_ITS ---
MAMMOGRAPHY - BILATERAL SCREENING REASON FOR EXAM: Female, 46 years old. Routine annual screening examination. PERTINENT HISTORY: Grandmother with breast cancer. TECHNIQUE: Digital bilateral breast russel (3D mammographic acquisition) in the CC and MLO projections. 2-D mediolateral oblique (MLO) and craniocaudad (CC) views of both breasts were obtained. CAD: Full Field Digital Mammography with Computer Added Detection was performed. COMPARISON: Comparison is made with prior study dated June 08, 2021. FINDINGS: Breast Composition: There are scattered areas of fibroglandular density. There are no dominant masses or suspicious calcifications. No other significant abnormalities are identified. There has been no significant change since the prior study. BI/SCRN MAMM (CAD)W/RUSSEL BILAT IMPRESSION: Stable bilateral screening mammogram. Yearly follow-up mammogram recommended. (A) ASSESSMENT CATEGORY: BIRADS Category 1: Negative. A letter regarding these results will be sent to the patient by the facility within 30 days. Approximately 10% of breast cancers are not detected by mammography. A normal mammogram should not delay biopsy of a clinically suspicious abnormality. [id number] Electronically Signed: Guerrero Taylor MD at 9:57 EDT ,
== END | disposition home or self-care (01) ==
LOC: OPBI 08:49
PROVIDERS: PCP Family Medicine; Referring Provider Obstetrics & Gynecology; Visit Provider Obstetrics & Gynecology
DX: Z12.31 Encounter for screening mammogram for malignant neoplasm of breast (principal); Z80.3 Family history of malignant neoplasm of breast
CPT/HCPCS: 77063; 77067

== ENCOUNTER 2022-12-31 10:51 | Outpatient (RCR) | payer OTHER, SELFPAY | END 2023-01-21 23:59 | LOC: DC 10:51 | PROVIDERS: PCP Family Medicine; Referring Provider Family Medicine; Visit Provider Family Medicine | DX: E10.9 Type 1 diabetes mellitus without complications (principal) | CPT/HCPCS: 97803 ==

== ENCOUNTER → 2023-04-12 | Outpatient (CLI) | payer OTHER, SELFPAY | END | disposition home or self-care (01) | LOC: LABSPEC 15:24 | PROVIDERS: PCP Family Medicine; Referring Provider Nurse Practitioner Family; Visit Provider Nurse Practitioner Family | DX: N39.0 Urinary tract infection, site not specified (principal) | CPT/HCPCS: 87086; 87088 ==

== ENCOUNTER → 2023-09-16 | Outpatient (CLI) | payer OTHER, SELFPAY ==
[2023-09-16 11:35] LABS: Vitamin D,25 Hydroxy 43.7 ng/mL
[2023-09-16 11:43] LABS: Creatinine, Urine (random) < 13.00 mg/dL (NO RANGE EST.); Microalbumin,Random Urine < 5.0 mg/L (NO RANGE EST.)
[2023-09-16 12:36] LABS: ALB/GLOB Ratio 0.8 RATIO (0.9-2.4); AST(SGOT) 21 U/L (15-37); Alanine Aminotransfer ALT/SGPT 20 U/L (13-56); Albumin, Serum 3.3 g/dL (3.2-5.0); Alkaline Phosphatase 121 U/L (45-117); Anion Gap 8 (5-15); BUN 11 mg/dL (7-18); BUN/Creat Ratio 12.2 RATIO (10-20); Calcium,Total 9.6 mg/dL (8.5-10.1); Chloride 105 mmol/L (98-107); Cholesterol 155 mg/dL (200); EST Glomerular Filtration Rate 71 mL/min (>60); Est Glom Filt Rate - Afr Amer 86 mL/min (>60); Globulin 4.4 g/dL (2.2-4.2); Glucose 36 mg/dL (74-106); High Density Lipoprotein 60 mg/dL; Potassium 3.5 mmol/L (3.5-5.1); Protein, Total 7.7 g/dL (6.4-8.2); Sodium Level 140 mmol/L (136-145); T4 Free Direct 1.36 ng/dL (0.76-1.46); Thyroid Stim Hormone (TSH) 0.11 uIU/mL (0.358-3.74); Triglycerides 77 mg/dL; Very Low Density Lipoprotein 15 mg/dL (5-40)
== END | disposition home or self-care (01) ==
LOC: LAB 10:38
PROVIDERS: PCP Family Medicine; Referring Provider Nurse Practitioner Family; Visit Provider Nurse Practitioner Family
DX: E10.9 Type 1 diabetes mellitus without complications (principal); E03.9 Hypothyroidism, unspecified
CPT/HCPCS: 36415; 80053; 80061; 82043; 82306; 82570; 84439; 84443

== ENCOUNTER 2023-11-12 12:42 | Outpatient (RCR) | payer OTHER, SELFPAY | END 2023-11-22 23:59 | LOC: DC 12:42 | PROVIDERS: PCP Family Medicine; Referring Provider Family Medicine; Visit Provider Family Medicine | DX: E10.9 Type 1 diabetes mellitus without complications (principal) | CPT/HCPCS: 97803 ==

== ENCOUNTER 2023-12-30 12:31 | Outpatient (RCR) | payer OTHER, SELFPAY | END 2024-01-22 23:59 | LOC: NS 12:31 | PROVIDERS: PCP Family Medicine; Referring Provider Family Medicine; Visit Provider Family Medicine | DX: E10.9 Type 1 diabetes mellitus without complications (principal); Z71.3 Dietary counseling and surveillance | CPT/HCPCS: 97803 ==

== ENCOUNTER 2024-01-19 15:42 | Emergency (ER) | payer OTHER, SELFPAY ==
[2024-01-19 15:43] VITALS: BP 136/77; PULSE 93; RESP 18; TEMP 36.4; O2SAT 96; BMI 48.0
--- NOTE | 2024-01-19 16:08 | EDS_ITS ---
HPI HPI - GI History of Present Illness Chief Complaint: GI Bleed Informant: patient Narrative Narrative: 48-year-old patient states she has IBS see, she was very constipated having hard time having a bowel movement yesterday, felt very hard and sharp, and she was straining very hard to try to go. At the end of having a large hard bowel movement, she saw some bright red blood. She was having a little bit of periumbilical discomfort in her abdomen before she went and it faded afterwards and today she has had no more significant pain or bleeding. However she is concerned because her mom of colon cancer runs in her family, and she is concerned that she could have colon cancer. She has had a colonoscopy in the past and did not have cancer before, she has another screening colonoscopy scheduled for next month with Dr. Noriega. She has no systemic symptoms of anemia right now, nausea or vomiting, she has had no melena. She takes no anticoagulants or antiplatelets. [facility] Medical History Diabetes Piercing Wears glasses Depression Anxiety Thyroid disease Insulin dependent diabetes mellitus Fatty liver Seizures Dietary restriction Gastric reflux Former smoker Asthma Shortness of breath on exertion Leg cramps History of edema Screen for colon cancer Acute gastritis with bleeding Obesity Hx of pyelonephritis Bloody stools Diarrhea Hay fever GERD (gastroesophageal reflux disease) Neuropathy Heart murmur Hormone deficiency History of low potassium Chronic bronchitis Cataract, left eye Breast lump Polycystic ovaries Pituitary abnormality Parathyroid abnormality Infertility Chronic headaches Adrenal disorder Hypothyroidism Back pain Seasonal allergies HTN (hypertension) Home Medications ?Medication ?Instructions ?Recorded ?Last Taken ?Type fexofenadine 60 mg tablet (Nisreen 60 mg PO PRN PRN ALLERGIES 05/11/20 Unknown History Allergy) amlodipine 2.5 mg tablet 2.5 mg PO DAILY #30 tabs 01/18/22 09/04/22 Rx famotidine 20 mg tablet 20 mg PO BID Heartburn 10/16/22 Unknown History metformin 1,000 mg tablet 1,000 mg PO BID #180 tabs 10/16/22 Unknown Rx peg 3350-electrolytes 236 240 ml PO Q10M #4,000 mL 11/16/22 Unknown Rx gram-22.74 gram-6.74 gram-5.86 gram solution (Golytely) insulin NPH isoph U-100 human 100 25 unit subcut BID 11/23/22 Unknown History unit/mL (3 mL) subcutaneous pen (Novolin N FlexPen) blood-glucose sensor (Dexcom G7 #3 ea 11/27/22 Unknown Rx Sensor device) pantoprazole 40 mg tablet,delayed 40 mg PO BID #60 tabs 12/06/22 Unknown Rx release (Protonix) levothyroxine 200 mcg tablet 200 mcg PO DAILY #30 tabs 08/19/23 Unknown Rx losartan 100 mg tablet 100 mg PO DAILY #30 tabs 08/19/23 Unknown Rx hydrocortisone 2.5 % topical cream 1 applic NC QHS 1 week #30 grams 01/19/24 Unknown Rx with perineal applicator (Proctosol HC) Allergy/AdvReac Type Severity Reaction Status Date / Time animal dander Allergy Severe Other Verified 01/19/24 15:43 tree and shrub pollen Allergy Severe Other Verified 01/19/24 15:43 Penicillins (PCN) Allergy Hives Verified 01/19/24 15:43 Family History Mother Diabetes Heart disease Hypertension High cholesterol Autoimmune disorder Lung cancer Thyroid disorder Primary cancer of bone marrow Aunt Lung cancer Hypertension Autoimmune disorder Grandmother Breast cancer Autoimmune disorder Myocardial infarction Hypertension Thyroid disorder Uncle COPD (chronic obstructive pulmonary disease) Primary cancer of bone marrow Autoimmune disorder Myocardial infarction Hypertension Thyroid disorder Father Myocardial infarction Grandfather Myocardial infarction Sister Seizures Anxiety Surgical History S/P ear surgery H/O oral surgery Social History household members: family Smoking Status: Former smoker second hand exposure: No alcohol intake: never substance use type: does not use caffeine: Yes ROS ROS ED Constitutional Constitutional ED: Denies chills or fever(s) Eyes Eyes: Denies change in vision or diplopia ENT ENT ED: Denies rhinorrhea or sore throat Cardiovascular Cardiovascular: Denies chest pain or palpitations Respiratory/Chest Respiratory/Chest: Denies cough or dyspnea Gastrointestinal Gastrointestinal: Reports abdominal pain, constipation and rectal bleeding; Denies diarrhea, nausea or vomiting Genitourinary Genitourinary ED: Denies dysuria or hematuria Musculoskeletal Musculoskeletal: Denies back pain or neck pain Integumentary Denies abscess or rash Neurologic Neurologic: Denies headache(s), paresthesias or weakness Psychiatric Psychiatric: Denies suicidal thoughts EXAM Physical Exam Const Vital Signs: 01/19/24 15:43 Temperature 97.6 F L Temperature Source Temporal Pulse Rate 93 Respiratory Rate 18 Blood Pressure 136/77 H Blood Pressure Mean 96 Pulse Ox 96 Oxygen Delivery Method Room Air Positive well nourished, well developed and obese General Appearance ED: well developed and NAD Nutritional Appearance: obese HEENT Reports moist mucous membranes normocephalic and atraumatic Eyes PERRL and EOMs intact bilaterally Neck full ROM and supple Resp normal respiratory effort and clear to auscultation bilaterally Cardio regular rate, regular rhythm and no murmurs GI non-tender and non-distended GI Narrative: Rectal normal on external inspection, no perianal tenderness, fullness, abscess, no external or prolapsed hemorrhoids. No active bleeding. Auscultation: normoactive bowel sounds Palpation: soft Back/Spine General Back: other FROM Extremity normal to inspection General Extremety ED: Negative for edema, pulses abnormal or tenderness General Extremity: Negative for edema or pulses abnormal Neuro oriented x3, CN's II-XII intact bilaterally and no sensory deficits noted Sensorium / Orientation: awake and alert Motor Exam: strength 5/5 throughout Skin no rashes or lesions noted and no wounds MDM MDM MDM Narrative Medical decision making narrative: Reassured this patient, this history and exam is much more consistent with hemorrhoidal bleeding then cancer. At the same time, I advised her of not able to rule out colon cancer in the ER; she will end up needing a colonoscopy but she is already scheduled for that of that which she is concerned about given her family history understand why she is scheduled for that. At this time I think the most appropriate treatment would be to treat her empirically for either an internal hemorrhoid or a nonprolapsed external hemorrhoid that is below the de ntate line but not at or below the anus since it is not visible. She is comfortable with that overall plan we discussed reasons to return to the ER. Discharge Plan Triage Chief Complaint: GI Bleed ED Provider: Jim Harrington Dx/Rx/DC Orders Clinical Impression: Bright red rectal bleeding, Constipation Instructions: ED Hemorrhoids, ED Lower GI Bleeding (Stable) Prescriptions: New hydrocortisone [Proctosol HC] 2.5 % cream with perineal applicator 1 applic NC QHS 7 Days Qty: 30 0RF No Action fexofenadine [Nisreen Allergy] 60 mg tablet 60 mg PO PRN PRN (Reason: ALLERGIES) amlodipine 2.5 mg tablet 2.5 mg PO DAILY Qty: 30 6RF metformin 1,000 mg tablet 1,000 mg PO BID Qty: 180 3RF peg 3350-electrolytes [Golytely] 236-22.74-6.74 -5.86 gram recon soln 240 ml PO Q10M Qty: 4000 0RF Rx Instructions: until fecal effluent is clear Novolin N FlexPen 100 unit/mL (3 mL) insulin pen 25 unit subcut BID famotidine 20 mg tablet 20 mg PO BID (DME) Dexcom G7 Sensor Device See Rx Instructions .Route Qty: 3 12RF Rx Instructions: As directed pantoprazole [Protonix] 40 mg tablet,delayed release (DR/EC) 40 mg PO BID Qty: 60 3RF levothyroxine 200 mcg tablet 200 mcg PO DAILY Qty: 30 0RF losartan 100 mg tablet 100 mg PO DAILY Qty: 30 0RF Primary Care Provider: Jose Alfredo De La Torre Referrals: Jose Alfredo De La Torre DO [Primary Care Provider] - Ranjeet Noriega MD [Non-Staff] - 1 Week if not improving (or as scheduled if improving) Print Language: Macanese Disposition Disposition: Home, Self Care
== END 2024-01-19 16:23 | disposition home or self-care (01) ==
PROVIDERS: Emergency Provider Emergency Medicine; PCP Family Medicine; Visit Provider Emergency Medicine
DX: K92.2 Gastrointestinal hemorrhage, unspecified (principal); E11.40 Type 2 diabetes mellitus with diabetic neuropathy, unspecified; Z79.4 Long term (current) use of insulin; K59.00 Constipation, unspecified; Z87.891 Personal history of nicotine dependence; I10 Essential (primary) hypertension; Z80.0 Family history of malignant neoplasm of digestive organs; R10.9 Unspecified abdominal pain; E66.9 Obesity, unspecified
CPT/HCPCS: 99282

== ENCOUNTER 2024-02-17 11:44 | Emergency (ER) | payer OTHER, SELFPAY ==
[2024-02-17 11:47] VITALS: BP 151/80; PULSE 87; RESP 16; TEMP 36.2; O2SAT 100; BMI 48.9
--- NOTE | 2024-02-17 13:45 | RAD_ITS ---
STUDY: X-RAY - LEFT FOOT CLINICAL: Female, 48 years old. Injury/Pain TECHNIQUE: 3 view(s) of the foot. COMPARISON: None. FINDINGS: Calcaneal spurs. Normal visualized subtalar, talonavicular, calcaneocuboid, tarsal and tarsometatarsal articulations. Normal metatarsi. Normal metatarsophalangeal joint of the great toe. Normal tibial and fibular sesamoid bones. There is degenerative arthrosis of the interphalangeal joint of the great toe. Normal phalanges of the great toe. Normal second through fifth metatarsophalangeal joints. Normal interphalangeal joints and phalanges of the lesser toes. Soft tissue swelling. RAD/Foot min 3 Views IMPRESSION: Degenerative changes of the distal interphalangeal joint of the great toe. Electronically Signed: uGerrero Taylor MD at 14:28 EDT ,
[2024-02-17 13:52] VITALS: BP 138/78; PULSE 78; RESP 17; TEMP 36.4; O2SAT 99
[2024-02-17 13:52] LABS: Absolute Lymphocyte Count 1.99 X10^3/uL (0.83-4.51); Absolute Neutrophil Count 6.4 X10^3/uL (2.0-7.7); Basophil# 0.06 X10^3/uL; Basophil% 0.7 % (0-1); Eosinophil# 0.15 X10^3/uL; Eosinophils% 1.6 % (0-5); Hematocrit 37.7 % (37-47); Hemoglobin 12.2 g/dL (12.0-15.0); Lymphocyte # 1.99 X10^3/ul (0.83-4.51); Lymphocyte % 21.7 % (19-41); Mean Corp Hgb Conc 32.4 g/dL (32-36); Mean Corpuscular Hgb 29.6 pg (27.0-32.0); Mean Corpuscular Volume 91.5 fL (81-99); Mean Platelet Vol. 8.7 fl (6.2-12.0); Monocyte% 6.5 % (0-10); NRBC Flagged by Analyzer 0 % (0-5); Neutrophil # 6.36 X10^3/uL (2.7-7.7); Neutrophil % 69.2 % (47-70); Platelet Count 390 K/mm3 (150-450); RBC Distribution Width CV 13.7 % (11.6-14.6); RBC Distribution Width SD 46.6 fl (35.1-43.9); Red Blood Count 4.12 M/mm3 (4.2-5.4); White Blood Count 9.2 K/mm3 (4.4-11.0)
[2024-02-17 13:53] VITALS: BP 132/78; PULSE 78; RESP 16; TEMP 36.8; O2SAT 99
--- NOTE | 2024-02-17 13:53 | ED.RN ---
Patient stated that she felt like her blood sugar was dropping. BS 36. Verbal order of 10% dextrose bolus given per Dr. Barry.
--- NOTE | 2024-02-17 14:02 | EDS_ITS ---
HPI History of Present Illness Chief Complaint: Lower Extremity Injury Detail of Chief Complaint: Crush injury left foot/toes now presenting with swelling redness Informant: patient Onset/Context/Timing Onset: Days (Swelling redness start over the past 24 to 48 hours. Injury was prior) Context: Sudden Onset Timing: Continuous Quality: Erythema, warmth and swelling dorsum left foot Location: Dorsum left foot Current Severity: Mild Maximum Severity: Mild Worsened by: Suspect due to trauma Relieved by: Nothing Associated Symptoms Associated Symptoms: No objective or subjective fever. No complaint of chills. Narrative Narrative: Patient is a 48-year-old female with history of hypertension, type 1 diabetes and hypothyroidism. She denies fever. Denies chills. Denies headache, visual, ocular auditory symptoms. She denies cardiac respiratory symptoms. She denies abdominal pain, nausea, vomiting or diarrhea. She denies dysuria, frequency, urgency or hematuria. Patient states he was seen at outside facility and had x-rays. She has bruising of all of her toes. She denies history of poor circulation. Prior similar symptoms: No Recent Illness/Hospitalization: No PFSH PFSH Medical History Diabetes Piercing Wears glasses Depression Anxiety Thyroid disease Insulin dependent diabetes mellitus Fatty liver Seizures Dietary restriction Gastric reflux Former smoker Asthma Shortness of breath on exertion Leg cramps History of edema Screen for colon cancer Acute gastritis with bleeding Obesity Hx of pyelonephritis Bloody stools Diarrhea Hay fever GERD (gastroesophageal reflux disease) Neuropathy Heart murmur Hormone deficiency History of low potassium Chronic bronchitis Cataract, left eye Breast lump Polycystic ovaries Pituitary abnormality Parathyroid abnormality Infertility Chronic headaches Adrenal disorder Hypothyroidism Back pain Seasonal allergies HTN (hypertension) Home Medications ?Medication ?Instructions ?Recorded ?Last Taken ?Type fexofenadine 60 mg tablet (Nisreen 60 mg PO PRN PRN ALLERGIES 05/11/20 Unknown History Allergy) famotidine 20 mg tablet 20 mg PO BID Heartburn 10/16/22 Unknown History insulin NPH isoph U-100 human 100 25 unit subcut BID 11/23/22 02/17/24 History unit/mL (3 mL) subcutaneous pen (Novolin N FlexPen) blood-glucose sensor (Dexcom G7 #3 ea 11/27/22 Unknown Rx Sensor device) pantoprazole 40 mg tablet,delayed 40 mg PO BID #60 tabs 12/06/22 02/17/24 Rx release (Protonix) levothyroxine 200 mcg tablet 200 mcg PO DAILY #30 tabs 08/19/23 02/17/24 Rx losartan 100 mg tablet 100 mg PO DAILY #30 tabs 08/19/23 02/17/24 Rx amlodipine 5 mg tablet 5 mg PO DAILY 02/17/24 02/17/24 History doxycycline monohydrate 100 mg 100 mg PO BID #14 CAPSULES 02/17/24 Unknown Rx capsule Allergy/AdvReac Type Severity Reaction Status Date / Time animal dander Allergy Severe Other Verified 02/17/24 11:51 tree and shrub pollen Allergy Severe Other Verified 02/17/24 11:51 Penicillins (PCN) Allergy Hives Verified 02/17/24 11:51 Family History Mother Diabetes Heart disease Hypertension High cholesterol Autoimmune disorder Lung cancer Thyroid disorder Primary cancer of bone marrow Aunt Lung cancer Hypertension Autoimmune disorder Grandmother Breast cancer Autoimmune disorder Myocardial infarction Hypertension Thyroid disorder Uncle COPD (chronic obstructive pulmonary disease) Primary cancer of bone marrow Autoimmune disorder Myocardial infarction Hypertension Thyroid disorder Father Myocardial infarction Grandfather Myocardial infarction Sister Seizures Anxiety Surgical History S/P ear surgery H/O oral surgery Social History household members: family Smoking Status: Former smoker second hand exposure: No alcohol intake: never substance use type: does not use caffeine: Yes ROS ROS ED Constitutional Constitutional ED: Denies chills, fever(s), subjective or sweats Eyes Eyes: Denies blurry vision or change in vision ENT ENT ED: Denies ear pain, rhinorrhea or sore throat Cardiovascular Cardiovascular: Denies chest pain or palpitations Respiratory/Chest Respiratory/Chest: Denies cough, dyspnea or dyspnea on exertion Gastrointestinal Gastrointestinal: Denies abdominal pain, nausea or vomiting Genitourinary Genitourinary ED: Denies dysuria, hematuria or urinary frequency Musculoskeletal Musculoskeletal: Denies arthralgias or myalgias Integumentary Reports rash Neurologic Neurologic: Denies paresthesias or weakness Hematologic/Lymphatic Hematologic/Lymphatic: Reports systems reviewed and no addt'l complaints, except as documented EXAM Physical Exam Const Vital Signs: 02/17/24 11:47 02/17/24 13:52 02/17/24 13:53 Temperature 97.1 F L 97.6 F L 98.3 F Temperature Source Temporal Oral Pulse Rate 87 78 78 Respiratory Rate 16 17 16 Blood Pressure 151/80 H 138/78 H 132/78 H Blood Pressure Mean 103 98 96 Pulse Ox 100 99 99 Oxygen Delivery Method Room Air Room Air Positive well nourished and well developed General Appearance ED: well developed and NAD; Negative for pallor HEENT Reports moist mucous membranes HEENT Narrative: And is atraumatic no cephalic. Ears normal. Eyes PERRL and EOMs intact bilaterally General Eye ED: Negative for pale conjunctiva or scleral icterus Neck no lymphadenopathy, supple and no JVD Resp normal respiratory effort and clear to auscultation bilaterally Cardio regular rate, regular rhythm, S1 normal heart sound, S2 normal heart sound and no murmurs Extremity Negative for normal to inspection Extremity Narrative: There is swelling of the left foot. There is erythema warmth and induration of the dorsum of the foot. There is no lymphangitis. There is no popliteal angle lymphadenopathy. Patient has bruising of all her toes. There is no subungual hematoma noted. There is tenderness over her toes. Neuro oriented x3 and CN's II-XII intact bilaterally Sensorium / Orientation: alert Motor Exam: strength 5/5 throughout Psych mental status grossly normal Skin no wounds and skin turgor normal Skin Narrative: Described under the extremity portion of the EMR General Skin Exam: Negative for jaundice or pallor MDM MDM MDM Narrative Medical decision making narrative: X-ray was obtained to evaluate for fracture. Concern patient has cellulitis. Blood work was obtained to assess for elevated white count and differential. Because she is diabetic to assess glucose as well as CO2 anion gap and electrolytes. Also renal function in the event that her antibiotic doses need to be adjusted. Lab Data Attestation: I reviewed the patient's lab results. Lab results narrative: White count is normal. Differential is normal. Basic metabolic panel is remarkable for hypoglycemia. Patient was treated with D10. Labs: Laboratory Results - last 24 hr 02/17/24 02/17/24 13:38 13:46 WBC 9.2 RBC 4.12 L Hgb 12.2 Hct 37.7 MCV 91.5 MCH 29.6 MCHC 32.4 RDW Std Deviation 46.6 H RDW Coeff of Benita 13.7 Plt Count 390 MPV 8.7 Immature Gran % (Auto) 0.300 Neut % (Auto) 69.2 Lymph % (Auto) 21.7 Armstrong % (Auto) 6.5 Eos % (Auto) 1.6 Baso % (Auto) 0.7 Absolute Neuts (auto) 6.4 Absolute Lymphs (auto) 1.99 Nucleated RBC % 0 Sodium 140 Potassium 3.2 L Chloride 104 Carbon Dioxide 30.0 Anion Gap 6 BUN 6 L Creatinine 0.88 Estim Creat Clear Calc 123.14 Est GFR (MDRD) Af Amer 88 Est GFR (MDRD) Non-Af 72 BUN/Creatinine Ratio 6.8 L Glucose 48 L Calcium 9.6 POC Glucose 36 L* Radiography Chest X-Ray - ED: Read by ED Physician (Three-view x-ray of the foot was independently interpreted by me at 1401 is negative. There is soft tissue swelling. There is no evidence of osteomyelitis, fracture, subluxation or dislocation.) Diagnostic Testing: Clinical Impression(s) from Imaging Studies Foot X-Ray 02/17/24 13:45 IMPRESSION: Degenerative changes of the distal interphalangeal joint of the great toe. Electronically Signed: Guerrero Taylor MD at 14:28 EDT , Treatment and Re-Evaluation :: I was informed that patient is hypoglycemic. D50 was ordered. I was informed we do not have D50. Patient was given a 250 cc bolus of D10. Patient was informed of results. Patient was informed of plan. 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 TOOK 4 UNITS AROUND 9AM famotidine 20 mg tablet 20 mg PO BID amlodipine 5 mg tablet 5 mg PO DAILY (DME) Dexcom G7 Sensor Device See Rx Instructions .Route Qty: 3 12RF Rx Instructions: As directed pantoprazole [Protonix] 40 mg tablet,delayed release (DR/EC) 40 mg PO BID Qty: 60 3RF levothyroxine 200 mcg tablet 200 mcg PO DAILY Qty: 30 0RF losartan 100 mg tablet 100 mg PO DAILY Qty: 30 0RF Primary Care Provider: Jose Alfredo De La Torre Referrals: Jose Alfredo De La Torre DO [Primary Care Provider] - 3-5 Days Print Language: Hebrew Disposition Disposition: Home, Self Care
[2024-02-17 14:08] LABS: Bedside Glucose 36 mg/dL (74-106)
[2024-02-17 14:13] LABS: Anion Gap 6 (5-15); BUN 6 mg/dL (7-18); BUN/Creat Ratio 6.8 RATIO (10-20); Calcium,Total 9.6 mg/dL (8.5-10.1); Chloride 104 mmol/L (98-107); Creatinine, Serum 0.88 mg/dL (0.55-1.02); EST Glomerular Filtration Rate 72 mL/min (>60); Est Glom Filt Rate - Afr Amer 88 mL/min (>60); Estimated Creatinine Clearance 123.14 ml/min; Glucose 48 mg/dL (74-106); Potassium 3.2 mmol/L (3.5-5.1); Sodium Level 140 mmol/L (136-145)
[2024-02-17 14:53] VITALS: BP 116/60; PULSE 78; RESP 16; TEMP 37; O2SAT 99
[2024-02-17] MEDS: Doxycycline 100 MG CAPSULE PO (15:16)
[2024-02-17 15:44] LABS: Bedside Glucose 67 mg/dL (74-106)
== END 2024-02-17 15:27 | disposition home or self-care (01) ==
PROVIDERS: Emergency Provider Emergency Medicine; PCP Family Medicine; Visit Provider Emergency Medicine
DX: L03.116 Cellulitis of left lower limb (principal); Z79.4 Long term (current) use of insulin; E10.649 Type 1 diabetes mellitus with hypoglycemia without coma; I10 Essential (primary) hypertension; Z87.891 Personal history of nicotine dependence; E03.9 Hypothyroidism, unspecified; E06.3 Autoimmune thyroiditis; S90.32XA Contusion of left foot, initial encounter; K21.9 Gastro-esophageal reflux disease without esophagitis; Z79.899 Other long term (current) drug therapy; Z79.890 Hormone replacement therapy; X58.XXXA Exposure to other specified factors, initial encounter
CPT/HCPCS: 73630; 80048; 82962; 85025; 99283; A4216

== ENCOUNTER → 2024-04-15 | Outpatient (CLI) | payer OTHER, SELFPAY | END | disposition home or self-care (01) | LOC: LABSPEC 15:25 | PROVIDERS: PCP Family Medicine; Referring Provider Nurse Practitioner Family; Visit Provider Nurse Practitioner Family | DX: R30.0 Dysuria (principal) | CPT/HCPCS: 87086 ==

== ENCOUNTER → 2024-05-20 | Outpatient (CLI) | payer OTHER, SELFPAY ==
--- NOTE | 2024-05-20 10:01 | BI_ITS ---
MAMMOGRAPHY - BILATERAL SCREENING 3-D TOMOSYNTHESIS REASON FOR EXAM: Female, 48 years old. Routine screening PERTINENT HISTORY: Grandmother with breast cancer.. TECHNIQUE: 2-D mammograms and 3-D Tomosynthesis of the breast (s) were performed. CAD was performed. COMPARISON: 06/08/2021 FINDINGS: The breast composition is almost entirely fat. Scattered benign calcifications are seen. No dense spiculated masses or suspicious microcalcifications are identified. No architectural distortion is identified. There is no skin thickening or retraction. There has been no significant change since the prior study. BI/SCRN MAMM (CAD)W/RUSSEL BILAT IMPRESSION: No mammographic signs of malignancy. Routine yearly mammograms recommended. ASSESSMENT CATEGORY: BIRADS Category 1: Negative. A letter regarding these results will be sent to the patient by the facility within 30 days. FOLLOW UP RECOMMENDATION: Yearly follow up mammogram recommended. (A) Approximately 10% of breast cancers are not detected by mammography. A normal mammogram should not delay biopsy of a clinically suspicious abnormality. Electronically Signed: Edgar Ellis MD at 10:55 EST ,
== END | disposition home or self-care (01) ==
PROVIDERS: PCP Family Medicine; Referring Provider Nurse Practitioner Family; Visit Provider Nurse Practitioner Family
DX: Z12.31 Encounter for screening mammogram for malignant neoplasm of breast (principal)
CPT/HCPCS: 77063; 77067